=== PATIENT | female | born 1965 ===

== ENCOUNTER 2021-07-22 23:13 | Inpatient (IN) ==
[2021-07-23] MEDS ORDERED: ONDANSETRON 4 MG/2 ML VIAL IV PRN (01:47)
[2021-07-23] MEDS ORDERED: SIMETHICONE CHEW 125 MG TABLET PO PRN (01:47)
[2021-07-23] MEDS ORDERED: MORPHINE 2 MG/1 ML SYRINGE IV PRN (01:47)
[2021-07-23] MEDS ORDERED: hydrALAZINE 20 MG/1 ML VIAL IV PRN (01:47)
[2021-07-23] MEDS ORDERED: GLUCAGON 1 MG VIAL IM PRN ×2 (01:47→13:20)
[2021-07-23] MEDS ORDERED: DEXTROSE 50% 25 GM/50 ML SYRINGE IV PRN (01:54)
[2021-07-23 02:33] LABS: Basophils % 0.9 % (0.0-0.8); Eosinophils # 0.3 10*3/uL (0.0-0.87); Eosinophils % 7.7 % (0.00-10.9); Hematocrit 31.3 VOL% (35.7-47.0); Hemoglobin 10.1 GM/DL (12.0-16.0); Immature Granulocytes % 0.3 %; Immature Granulocytes Absolute 0.01 #; Lymphocytes # 1.4 10*3/uL (1.4-4.0); Lymphocytes % 41.3 % (21.3-54.2); Mean Corpuscular HGB Conc 32.3 GM/DL (32-36); Mean Platelet Volume 9.8 FL (9.6-12.0); Monocytes % 9.1 % (1.7-12.7); Neutrophils % 40.7 % (38.7-73.9); Platelet Count 294 T/CUMM (130-400); Red Blood Count 3.33 MC/CUMM (3.8-5.5); White Blood Count 3.4 T/CUMM (4-12)
[2021-07-23] MEDS: ACETAMINOPHEN 325 MG TABLET PO PRN (02:34)
[2021-07-23 03:06] LABS: Albumin 2.7 G/DL (3.4-5.0); Bilirubin,Total 0.5 MG/DL (0.20-1.00); Calcium 8.1 MG/DL (8.5-10.1); Osmolality,Calculated 285.8 MOS/KG (273-304); Potassium 3.8 MMOL/L (3.5-5.1); Risk Ratio 5.59; Thyroid Stimulating Hormone 57.7 uIU/ml (0.358-3.74); Total Protein 6.5 G/DL (6.4-8.2); VLDL Cholesterol 67.8 MG/DL
[2021-07-23] MEDS: LEVOTHYROXINE 100 MCG TABLET PO SCH (06:19)
[2021-07-23 06:30] LABS: Free T4 (Free Thyroxine) 0.62 NG/DL (0.76-1.46)
[2021-07-23 06:51] LABS: PT Patient Result 10.7 SECS (10.5-12.0)
[2021-07-23 08:35] LABS: Hepatitis B Core IgM Quant 0.14 Index; Hepatitis B Surface Ag Quant < 0.10 Index; Hepatitis B Surface Ag Result Non-Reactive (NonReactive); Hepatitis C Virus Ab Quant 0.04 Index; Hepatitis C Virus Ab Result Non-Reactive (NonReactive)
[2021-07-23 08:54] LABS: Albumin 2.8 G/DL (3.4-5.0); Bilirubin,Direct 0.1 MG/DL (0.0-0.20); Bilirubin,Indirect 0.5 MG/DL (0.0-1.0); Bilirubin,Total 0.6 MG/DL (0.20-1.00); Total Protein 6.9 G/DL (6.4-8.2)
[2021-07-23] MEDS ORDERED: PANTOPRAZOLE 40 MG TABLET PO SCH (09:00)
[2021-07-23] MEDS: INSULIN REGULAR 100 UNIT/ML SUBCUT SCH ×4 (09:09→21:13)
[2021-07-23] MEDS: DOCUSATE SODIUM 100 MG CAPSULE PO SCH ×2 (09:10→20:18)
[2021-07-23] MEDS ORDERED: ALBUTEROL 2 MG TABLET PO PRN (09:24)
[2021-07-23] MEDS ORDERED: BUDESONIDE 0.5 MG/2 ML NEB RESP TX PRN (09:24)
[2021-07-23] MEDS: INSULIN GLARGINE 100 UNIT/ML SUBCUT SCH (10:13)
[2021-07-23] MEDS ORDERED: DEXTROSE 50% 25 GM/50 ML VIAL IV PRN (13:20)
[2021-07-23 19:01] LABS: % Iron Saturation 28.1 % (18-50)
[2021-07-23 20:10] LABS: Bacteria,Urine Moderate /HPF (Few); Bilirubin,Urine Negative (Negative); Blood, Urine Large mg/dL (Negative); Glucose,Urine (UA) >=500 mg/dL (Negative); Ketones,Urine Negative (Negative); Mucus,Urine Occasional /LPF (Occasional); Nitrite,Urine Negative (Negative); Protein,Urine 100 MG/DL; RBC,Urine 22 /HPF (0-4); Squamous Epithelial Cell,Urine Occasional /HPF (0-10); Urine Appearance Slightly Hazy (Clear); Urine Color Yellow (Yellow); Urine Specific Gravity 1.038 (1.001-1.035); Urine Urobilinogen < 2.0 EU/DL (0.2-1.0)
[2021-07-23] MEDS: PANTOPRAZOLE 40 MG TABLET PO SCH (20:18)
[2021-07-23] MEDS ORDERED: MONTELUKAST 10 MG TABLET PO SCH (21:00)
[2021-07-24] MEDS: LEVOTHYROXINE 100 MCG TABLET PO SCH (06:22)
[2021-07-24 06:58] LABS: Alanine Aminotransferase 284 U/L (13-56); Albumin 2.5 G/DL (3.4-5.0); Alkaline Phosphatase 267 U/L (45-117); Aspartate Amino Transferase 107 U/L (0-37); Bilirubin,Direct < 0.100 MG/DL (0.0-0.20); Bilirubin,Indirect 0.8 MG/DL (0.0-1.0); Total Protein 6.1 G/DL (6.4-8.2)
[2021-07-24] MEDS ORDERED: FERROUS SULFATE 325 MG TABLET PO SCH (09:00)
[2021-07-24] MEDS ORDERED: amLODIPine 10 MG TABLET PO SCH (09:00)
[2021-07-24] MEDS ORDERED: OMEGA 3 ACID ETHYL ESTERS 1 GM CAPSULE PO SCH (09:00)
[2021-07-24 09:31] LABS: Basophils % 0.9 % (0.0-0.8); Eosinophils # 0.4 10*3/uL (0.0-0.87); Eosinophils % 8.4 % (0.00-10.9); Hematocrit 31.2 VOL% (35.7-47.0); Hemoglobin 9.8 GM/DL (12.0-16.0); Immature Granulocytes % 0.2 %; Immature Granulocytes Absolute 0.01 #; Lymphocytes # 1.6 10*3/uL (1.4-4.0); Lymphocytes % 34.3 % (21.3-54.2); Mean Corpuscular HGB Conc 31.4 GM/DL (32-36); Mean Corpuscular Volume 96.6 FL (87-102); Mean Platelet Volume 9.9 FL (9.6-12.0); Monocytes % 7.9 % (1.7-12.7); Neutrophils % 48.3 % (38.7-73.9); Platelet Count 310 T/CUMM (130-400); Red Blood Count 3.23 MC/CUMM (3.8-5.5); Red Cell Distribution Width 12.8 % (9.3-17.3); White Blood Count 4.7 T/CUMM (4-12)
[2021-07-24] MEDS: INSULIN GLARGINE 100 UNIT/ML SUBCUT SCH (09:32)
[2021-07-24] MEDS: INSULIN REGULAR 100 UNIT/ML SUBCUT SCH ×2 (09:32→12:30)
[2021-07-24] MEDS: DOCUSATE SODIUM 100 MG CAPSULE PO SCH (09:33)
[2021-07-24] MEDS: PANTOPRAZOLE 40 MG TABLET PO SCH (09:33)
[2021-07-24] MEDS: ACETAMINOPHEN 325 MG TABLET PO PRN (09:34)
[2021-07-24 09:46] LABS: Calcium 7.9 MG/DL (8.5-10.1); Osmolality,Calculated 294.5 MOS/KG (273-304); Potassium 4.3 MMOL/L (3.5-5.1)
[2021-07-24 12:15] VITALS: BP 140/68
[2021-07-26 13:11] LABS: Antinuclear Ab, S 0.2 U
== END 2021-07-24 15:01 | disposition home or self-care (01) | DRG 74 ==
LOC: N.TELES → SUATTDRO 07-23 00:32
PROVIDERS: ADMIT Internal Medicine; ATTEND Internal Medicine

== ENCOUNTER 2021-11-23 02:51 | Inpatient (IN) ==
[2021-11-23] MEDS ORDERED: hydrALAZINE 20 MG/1 ML VIAL IV PRN (03:52)
[2021-11-23] MEDS ORDERED: MAGNESIUM SULF RIDER 2 GM/50 ML PREMIX IV PRN (03:52)
[2021-11-23] MEDS ORDERED: MAGNESIUM SULF RIDER 4 GM/100 ML PREMIX IV PRN (03:52)
[2021-11-23] MEDS ORDERED: DEXTROSE 10% 250 ML BAG IV PRN (03:52)
[2021-11-23] MEDS ORDERED: POTASSIUM CHLORIDE RIDER 10 MEQ/100 ML PREMIX IV PRN (03:52)
[2021-11-23] MEDS ORDERED: POTASSIUM CHLORIDE 20 MEQ TABLET PO PRN (03:52)
[2021-11-23] MEDS ORDERED: DEXTROSE 50% 25 GM/50 ML VIAL IV PRN (03:52)
[2021-11-23] MEDS ORDERED: GLUCAGON 1 MG VIAL IM PRN ×2 (03:52)
[2021-11-23] MEDS ORDERED: ACETAMINOPHEN 325 MG TABLET PO PRN (03:52)
[2021-11-23 04:21] LABS: Basophils # 0.1 10*3/uL (0.0-0.2); Basophils % 0.8 % (0.0-0.8); Eosinophils # 0.3 10*3/uL (0.0-0.87); Eosinophils % 4.6 % (0.00-10.9); Hematocrit 29.4 VOL% (35.7-47.0); Hemoglobin 9.8 GM/DL (12.0-16.0); Immature Granulocytes % 0.3 %; Immature Granulocytes Absolute 0.02 #; Lymphocytes # 2.3 10*3/uL (1.4-4.0); Lymphocytes % 36.3 % (21.3-54.2); Mean Corpuscular HGB Conc 33.3 GM/DL (32-36); Mean Corpuscular Volume 90.5 FL (87-102); Mean Platelet Volume 9.7 FL (9.6-12.0); Monocytes % 8.1 % (1.7-12.7); Neutrophils % 49.9 % (38.7-73.9); Platelet Count 305 T/CUMM (130-400); Red Blood Count 3.25 MC/CUMM (3.8-5.5); Red Cell Distribution Width 12.4 % (9.3-17.3); White Blood Count 6.3 T/CUMM (4-12)
[2021-11-23] MEDS ORDERED: MEPERIDINE 25 MG/1 ML VIAL IV PRN (04:23)
[2021-11-23 04:47] LABS: Alanine Aminotransferase 14 U/L (13-56); Albumin 2.5 G/DL (3.4-5.0); Alkaline Phosphatase 182 U/L (45-117); Aspartate Amino Transferase 11 U/L (0-37); Bilirubin,Total < 0.39 MG/DL (0.20-1.00); Blood Urea Nitrogen 31 MG/DL (7-18); Calcium 8.1 MG/DL (8.5-10.1); Carbon Dioxide 23 MMOL/L (21-32); Estimated Glom Filtration Rate 44 ML/MIN; Glucose 301 MG/DL (74-106); HDL Cholesterol 40 MG/DL (40-60); Potassium 4.3 MMOL/L (3.5-5.1); Risk Ratio 6.43; Sodium 136 MMOL/L (136-145); Total Protein 6.1 G/DL (6.4-8.2); Triglycerides 518 MG/DL (2-150); VLDL Cholesterol 103.6 MG/DL
[2021-11-23] MEDS: SODIUM CHLORIDE 0.9% 1,000 ML IV SCH ×4 (05:13→20:50)
[2021-11-23 06:26] LABS: INR 0.9; PT Patient Result 10.2 SECS (10.5-12.0); Partial Thromboplastin Time 24.8 SECS (23.8-32.1)
[2021-11-23] MEDS ORDERED: HYDROmorphone 1 MG/1 ML SYRINGE IV PRN (07:10)
[2021-11-23] MEDS: INSULIN REGULAR 100 UNIT/ML SUBCUT SCH ×4 (07:45→20:52)
[2021-11-23] MEDS: OMEGA 3 ACID ETHYL ESTERS 1 GM CAPSULE PO SCH ×2 (08:39→20:51)
[2021-11-23] MEDS: DOCUSATE SODIUM 100 MG CAPSULE PO SCH ×2 (08:39→20:51)
[2021-11-23] MEDS: FENOFIBRATE 145 MG TABLET PO SCH (08:39)
[2021-11-23] MEDS: PANTOPRAZOLE 40 MG TABLET PO SCH (08:40)
[2021-11-23] MEDS: ENOXAPARIN 40 MG/0.4 ML SYRINGE SUBCUT SCH (08:41)
[2021-11-23] MEDS: LEVOTHYROXINE 100 MCG VIAL IV SCH (08:42)
[2021-11-23 11:58] LABS: Amorphous Crystals,Urine Occasional /HPF (Few); Bacteria,Urine Occasional /HPF (Few); RBC,Urine 4 /HPF (0-4); Squamous Epithelial Cell,Urine Occasional /HPF (0-10)
[2021-11-23 11:59] LABS: Bilirubin,Urine Negative (Negative); Blood, Urine Trace mg/dL (Negative); Glucose,Urine (UA) 3+ mg/dL (Negative); Ketones,Urine Negative (Negative); Nitrite,Urine Positive (Negative); Protein,Urine 2+ mg/dL (Negative); Urine Appearance Clear (Clear); Urine Color Light Yellow (Yellow); Urine Specific Gravity 1.015 (1.001-1.035); Urine Urobilinogen 0.2 eU/dL (<2.0); Urine pH 5.5 (4.5-8.0)
[2021-11-23] MEDS: HYDROmorphone 1 MG/1 ML SYRINGE IV PRN (16:24)
[2021-11-23] MEDS: EZETIMIBE 10 MG TABLET PO SCH (20:51)
[2021-11-23] MEDS ORDERED: ATORVASTATIN 40 MG TABLET PO SCH (21:00)
[2021-11-24] MEDS: SODIUM CHLORIDE 0.9% 1,000 ML IV SCH (02:04)
[2021-11-24] MEDS: HYDROmorphone 1 MG/1 ML SYRINGE IV PRN ×2 (05:33→18:08)
[2021-11-24] MEDS: LEVOTHYROXINE 100 MCG VIAL IV SCH (05:34)
[2021-11-24 05:44] LABS: Basophils % 0.6 % (0.0-0.8); Eosinophils # 0.2 10*3/uL (0.0-0.87); Eosinophils % 5.2 % (0.00-10.9); Hematocrit 28.3 VOL% (35.7-47.0); Hemoglobin 9.4 GM/DL (12.0-16.0); Immature Granulocytes % 0.2 %; Immature Granulocytes Absolute 0.01 #; Lymphocytes % 42.4 % (21.3-54.2); Mean Corpuscular HGB Conc 33.2 GM/DL (32-36); Mean Corpuscular Volume 92.5 FL (87-102); Mean Platelet Volume 9.8 FL (9.6-12.0); Monocytes % 7.1 % (1.7-12.7); Neutrophils % 44.5 % (38.7-73.9); Platelet Count 303 T/CUMM (130-400); Red Blood Count 3.06 MC/CUMM (3.8-5.5); Red Cell Distribution Width 12.8 % (9.3-17.3); White Blood Count 4.6 T/CUMM (4-12)
[2021-11-24 06:00] LABS: Calcium 7.9 MG/DL (8.5-10.1); Osmolality,Calculated 286.4 MOS/KG (273-304); Potassium 4.1 MMOL/L (3.5-5.1)
[2021-11-24] MEDS: PANTOPRAZOLE 40 MG TABLET PO SCH (08:36)
[2021-11-24] MEDS: ONDANSETRON 4 MG/2 ML VIAL IV PRN ×2 (08:36→21:08)
[2021-11-24] MEDS: DOCUSATE SODIUM 100 MG CAPSULE PO SCH ×2 (08:36→21:01)
[2021-11-24] MEDS: OMEGA 3 ACID ETHYL ESTERS 1 GM CAPSULE PO SCH ×2 (08:36→21:01)
[2021-11-24] MEDS: DAPAGLIFLOZIN 5 MG TABLET PO SCH (08:36)
[2021-11-24] MEDS: FENOFIBRATE 145 MG TABLET PO SCH (08:36)
[2021-11-24] MEDS: INSULIN REGULAR 100 UNIT/ML SUBCUT SCH ×4 (08:36→21:02)
[2021-11-24] MEDS: FERROUS SULFATE 325 MG TABLET PO SCH (08:36)
[2021-11-24] MEDS: ENOXAPARIN 40 MG/0.4 ML SYRINGE SUBCUT SCH (08:47)
[2021-11-24] MEDS: cefTRIAXone 1,000 MG in SODIUM CHLORIDE 0.9% 100 ML IV SCH (10:53)
[2021-11-24] MEDS: EZETIMIBE 10 MG TABLET PO SCH (21:01)
[2021-11-25] MEDS ORDERED: LEVOTHYROXINE 137 MCG TABLET PO SCH (06:30)
[2021-11-25 06:46] LABS: Basophils # 0.1 10*3/uL (0.0-0.2); Basophils % 1.2 % (0.0-0.8); Eosinophils # 0.2 10*3/uL (0.0-0.87); Eosinophils % 4.7 % (0.00-10.9); Hematocrit 28.8 VOL% (35.7-47.0); Hemoglobin 9.6 GM/DL (12.0-16.0); Lymphocytes # 2.1 10*3/uL (1.4-4.0); Lymphocytes % 49.1 % (21.3-54.2); Mean Corpuscular HGB Conc 33.3 GM/DL (32-36); Mean Corpuscular Volume 91.1 FL (87-102); Mean Platelet Volume 10.3 FL (9.6-12.0); Platelet Count 307 T/CUMM (130-400); Red Blood Count 3.16 MC/CUMM (3.8-5.5); Red Cell Distribution Width 12.7 % (9.3-17.3); White Blood Count 4.3 T/CUMM (4-12)
[2021-11-25 07:02] LABS: Calcium 7.7 MG/DL (8.5-10.1); Osmolality,Calculated 282.3 MOS/KG (273-304); Potassium 3.4 MMOL/L (3.5-5.1)
[2021-11-25 07:07] LABS: Eosinophils 5 % (0-10); Hypochromia 1+; Lymphocytes 47 % (20-55); Microcytosis 1+; Platelet Estimate Adequate; Segmented Neutrophils 39 % (50-85); Total Cells Counted 100
[2021-11-25] MEDS: INSULIN REGULAR 100 UNIT/ML SUBCUT SCH ×2 (08:26→12:32)
[2021-11-25] MEDS: ENOXAPARIN 40 MG/0.4 ML SYRINGE SUBCUT SCH (08:27)
[2021-11-25] MEDS: FENOFIBRATE 145 MG TABLET PO SCH (08:28)
[2021-11-25] MEDS: DAPAGLIFLOZIN 5 MG TABLET PO SCH (08:28)
[2021-11-25] MEDS: DOCUSATE SODIUM 100 MG CAPSULE PO SCH (08:28)
[2021-11-25] MEDS: OMEGA 3 ACID ETHYL ESTERS 1 GM CAPSULE PO SCH (08:28)
[2021-11-25] MEDS: FERROUS SULFATE 325 MG TABLET PO SCH (08:29)
[2021-11-25] MEDS ORDERED: POTASSIUM CHLORIDE 20 MEQ TABLET PO ONE (08:30)
[2021-11-25] MEDS: cefTRIAXone 1,000 MG in SODIUM CHLORIDE 0.9% 100 ML IV SCH (08:34)
[2021-11-25] MEDS ORDERED: amLODIPine 10 MG TABLET PO SCH (09:00)
[2021-11-25] MEDS ORDERED: PANTOPRAZOLE 40 MG TABLET PO SCH (09:00)
[2021-11-25 11:35] VITALS: BP 157/70
[2021-11-25] MEDS ORDERED: INSULIN GLARGINE 100 UNIT/ML SUBCUT SCH (18:00)
[2021-11-25] MEDS ORDERED: MONTELUKAST 10 MG TABLET PO SCH (21:00)
== END 2021-11-25 16:30 | disposition home or self-care (01) | DRG 440 ==
LOC: EDUNIT# → EDBD → N.ED 02:51 → N.EDINP 03:52 → SUATTDRO 03:52 → N.EDINP 05:25 → N.3E 05:33
PROVIDERS: ADMIT Hospitalist; ATTEND Family Medicine